=== PATIENT | male | born 1970 | race Caucasian/White ===

== ENCOUNTER 2016-08-08 07:27 | Emergency (ER) | payer OTHER ==
[~2016-08-08] VITALS: Ht 188 cm; Wt 93.2 kg
[2016-08-08 07:30] VITALS: BP 168/89; PULSE 49; RESP 14; O2SAT 98
--- NOTE | 2016-08-08 07:31 | ED.REPORT ---
HPI-Syncope Date of Service Aug 08, 2016 ED Provider: Abdi Stanton MD History of Present Illness: OCC Note initial nursing note used the word "blackout" implying syncope which is why the syncope template was chosen, but on history no actual syncope ever occurred patient describes vertigo, rather than near syncopal The patient is a 45 year old male who presents to the ED accompanied by his due to dizziness onset 4 hrs ago. He woke up this morning at 0400 and "did not feel right," reporting lightheadedness and disorientation. Pt went to the gym for his regular morning workout and afterwards felt like he was going to pass out, reporting an increase in dizziness and headache. Associated symptoms include photophobia, warmth, headache, loss of balance, and right ear pain. Pt describes that he did not feel sick, just abnormal. He denies loss of extremity function, numbness, or weakness. When he closes his eyes, he states that, "everything is spinning." If he holds his head still long enough, the dizziness stops. He takes naproxen and Nexium on a daily basis. Nursing Notes Stated Complaint: DIZZY,BLACKOUT,NAUSEA Chief Complaint: General Complaint Nursing Notes Reviewed: Yes ([employer], 51.com not reconciled) Allergies: Coded Allergies: No Known Allergies (Unverified , 08/08/16) Scheduled PRN Meclizine (Bonine) 25 Mg Tab.chew 25 MG PO TID PRN PRN For Dizziness Prochlorperazine Maleate (Prochlorperazine) 10 Mg Tablet 10 MG PO Q6H PRN PRN vertigo General Time Seen by Provider: 08:02 Chief Complaint Other (dizziness) Hx Obtained From: Patient Arrived By: Walk-in Onset Occurred: 5 - 8 hours ago Symptom Duration: Since onset Recent Healthcare: No recent doctor visit, No recent hospitalization Similar Sx Previous: No Past Medical History Past Medical History Notes: Patient is had prior evaluation for syncope with an echocardiogram March 2016: Interpretation Summary The left ventricle is normal in size, wall thickness, and systolic function without any focal wall motion abnormalities with the ejection fraction visually estimated to be 55-60%. Assessment of diastolic parameters indicates normal left ventricular diastolic function and normal filling pressures. The right ventricle is normal in size, thickness and function. Pulmonary artery pressures cannot be estimated because of the lack of a measurable TR jet velocity but the IVC suggests a low right atrial pressure of 3 mm Hg. The left atrium is moderately dilated while the right atrium is normal in size. There is no significant valvular heart disease. The patient was in sinus bradycardia with heart rates between 41-65 bpm during the exam. Past Medical History denies Past Surgical History denies Family History anuerysm Reports: Stroke Smoking History Never Smoker Social History Alcohol Use: 1-3 per week Other Social History: Good social support, , Local resident Ambulatory Status Independent Review of Systems Neurologic: Reports: Change LOC, Dizziness, Headache, Spinning sensation, Denies: Numbness, Slurred speech, Unable to speak, Weakness Complete sys rev & neg: except as marked. Physical Exam Physical Exam Notes: Initial Vital Signs Vital Signs (First) Date Time Temp Pulse Resp B/P Pulse Ox O2 Delivery O2 Flow Rate FiO2 08/08/16 07:30 36.8 49 14 168/89 98 Room Air Initial VS: Reviewed Abdomen / GI: Soft, Non-tender, No guarding, No rebound, No distention Lymphatic: No lymphadenopathy Upper Extremities: Vascular intact, Neuro intact, No swelling, No tenderness General/Constitutional: Awake, Alert, Cooperative Respiratory / Chest: Atraumatic, Breath sounds NL, Breath sounds = bilat, No respiratory distress Cardiovascular: Heart rate NL, Regular rhythm, Heart sounds NL, No gallop, No murmurs, No rubs Lower Extremity / Pelvis / MS: Atraumatic, Inspection NL Neurologic: Speech NL positive cerebellar ataxia mildly positive Romberg's test w/ normal finger to nose Head / Eyes: Normocephalic, No nystagmus ENT: Tympanic membs NL both ears completely clear no cervcial adenopathy no clinical symptoms of ENT infection that I can visualize Interpretation & Diagnostics Interpretation & Diagnostics: ANGIOGRAM MRI IMPRESSION: BRAIN MRI: 1. No evidence of infarct or other acute intracranial abnormality. BRAIN MR ANGIOGRAM: 1. No high-grade stenosis or occlusion of the central intracranial arteries. NECK MR ANGIOGRAM: 1. No high-grade stenosis or occlusion of the head and neck arteries. Carotid bulbs are widely patent. The estimate of stenosis included in the report of the imaging study was calculated using the NASCET method Dictated by: Matt Gabriel M.D. on 08/08/2016 at 12:00 Approved by: Matt Gabriel M.D. on 08/08/2016 at 12:13 Lab Results Interpretation Result Diagram: 08/08/16 0828 08/08/16 0828 Test 08/08/16 08:28 08/08/16 08:38 White Blood Count 9.4th/mm3 (3.8-10.1) Red Blood Count 5.30mil/mm3 (4.40-5.80) Hemoglobin 14.5g/dL (13.8-17.2) Hematocrit 43.2% (41.0-50.0) Mean Corpuscular Volume 81.5fL (81-100) Mean Corpuscular Hemoglobin 27.4pg (27.0-35.0) Mean Corpuscular Hemoglobin Concent 33.6% (32.0-37.0) Red Cell Distribution Width 13.3% (12.3-15.4) Platelet Count 345bil/L (150-400) Neutrophils (%) (Auto) 59.6% (40-74) Lymphocytes (%) (Auto) 24.6% (14-46) Monocytes (%) (Auto) 10.7% (4-12) Eosinophils (%) (Auto) 4.5% (0-5) Basophils (%) (Auto) 0.5% (0-3) Sodium Level 138mEq/L (134-144) Potassium Level 4.2mEq/L (3.5-5.2) Chloride Level 100mEq/L (97-108) Carbon Dioxide Level 23mmol/L (18-29) Blood Urea Nitrogen 15mg/dL (6-24) Creatinine 1.02mg/dL (0.76-1.27) Estimat Glomerular Filtration Rate 84mL/min (>59) Glucose Level 106mg/dL (60-99) Calcium Level 9.3mg/dL (8.5-10.1) Total Bilirubin 0.3mg/dL (0.0-1.2) Aspartate Amino Transf (AST/SGOT) 27U/L (0-50) Alanine Aminotransferase (ALT/SGPT) 29U/L (0-44) Alkaline Phosphatase 59U/L (25-150) Total Protein 7.4g/dL (6.4-8.4) Albumin 4.2g/dL (3.4-5.0) Hold Urine Received (Received) Lab Results Interpretation: Could not find an old EKG for comparison, but was able to locate an EKG from 12/09/15 which reports sinus bradycardia, 1st degree heartblock, and RBBB ECG Interpretation ECG Interpretation: 1st degree heart block UT intervals RBBB Time: 08:10 Interpreted by: ED physician Rhythm / Conduction: Bradycardia CT Head Interpretation IMPRESSION: No acute intracranial disease process. Dictated by: Kayla Hooks MD, PhD on 08/08/2016 at 8:38 Approved by: Kayla Hooks MD, PhD on 08/08/2016 at 8:41 Study: Head CT no contrast Interpretation / Wet Read by: Interpret - Radiologist Re-Eval/Medical Decision Med Decision/Clinical Course This is a resident previously healthy 45-year-old male presents with complaint of dizziness and describes what sounds like classic peripheral vertigo with sudden onset of symptoms this morning, turning his head worsens it, and his balance is off and he has difficulty walking when it occurs. There is no diaphoresis nausea vomiting. He does have a moderate headache at times with it with a sharp pain on the right side of his head-any indicates there is a family history of cerebral aneurysms, with his father dying of one. here in the Department he is normal vitals, clinically well appearing, he does not have nystagmus. His NIH stroke scale is 0. However the patient cannot walk heel-to-toe with positive ataxia, but does not fall to a single side. He has a mildly positive Romberg as well. No meningismus. His ear exam is normal. Patient presents with what sounds like peripheral vertigo, but has the risk factors of the familial cerebral aneurysm, an atypical headache-so workup was pursued. CT brain was negative, MRI with MRA was negative as well. Labwork was normal. Patient's improved with meclizine. At this point I am not finding evidence of dangerous etiology. No clinical findings of meningismus. He feels much improved. He is being discharged with a prescription for meclizine and when necessary prochlorperazine, a work note was provided as well. Patient's discharged in good/improved condition. Source of Hx: Old records Differential Diagnosis: Negative: Abdominal aortic aneurysm, Acute coronary syndrome, Alcohol abuse, Anemia, Arrhythmia, Autonomic dysfunction, Cerebrovascular accident, Chest pain, acute, Dysrhythmia, Electrolyte disorder, Head trauma, Hypoglycemia, Intracranial bleed, Palpitations, Pericarditis, Pneumothorax, Pulmonary embolus, Sepsis, Subarachnoid hemorrhage, Thoracic aortic dissect, CENTRIFUGAL SPINNER shunt malfunction, Vasovagal syncope Counseled Regarding: Diagnosis, Lab results, Need for follow-up, When/why to return to ED Discharge & Departure Impression: Primary Impression: Vertigo Disposition: Home Discharge Condition All VS Reviewed: Yes Condition: Stable Additional Instructions: 1. Your CT scan, lab work, and MRI were normal-there were no findings of a stroke, or aneurysm. 2. Your symptoms and exam suggest peripheral vertigo, this is usually caused by a temporary imbalance and oriented in the inner ear responsible for helping with your balance and coordination. 3. Although initially disabling, symptoms are expected to resolve with time. 4. Take things very easily-move slowly. No driving until symptoms have completely resolved. 5. Recommend taking meclizine 25 mg 3 times a day for the next couple of days and then as or if needed for the dizziness. 6. If needed for more severe symptoms, take prochlorperazine 10 mg up to every 6 hours. Note both of these medications cause some drowsiness, prochlorperazine tends to cough is more than meclizine. 7. Return if new or worsening or uncontrolled symptoms occur. Referrals: [facility] (PCP) Scribe Attestation Portion of this note were transcribed by Kathi Mccoy. I, Dr. Stanton, personally performed the history, physical exam, and medical decision-making: I reviewed and confirmed the accuracy for the information in the transcribed note. Signed by: gregorio Chase, 08/08/16 1000 copies to: [facility] Risk Factors NIH Stroke Scale Level of Consciousness: Alert and responsive (0) Ask Month & Age: Both questions right (0) Open/Close Eyes/Hand Rotary Drill Operator: Performs both tasks (0) Horizontal EO Movements: None (0) Visual Beard: No visual loss (0) Facial Palsy: Normal symmetry (0) Right Arm Motor Drift (10s): No drift 10 sec (0) Left Arm Motor Drift (10s): No drift 10 sec (0) Right Leg Motor Drift (5s): No drift 5 sec (0) Left Leg Motor Drift (5s): No drift 5 sec (0) Limb Ataxia FNF/Heel-Reyes: No ataxia (0) Sensation (Arms/Legs/Face): No sensory loss (0) Language Aphasia: No aphasia, normal (0) Dysarthria: No dysarthria, normal (0) Extinction/Inattention: No exctinct/inattent (0) NIHSS Score: 0 Time NIHSS Performed: 08:05 Date NIHSS Performed: Aug 08, 2016 Abdi Stanton MD Aug 08, 2016 07:31 Kathi Mccoy Aug 08, 2016 08:06
--- NOTE | 2016-08-08 08:42 | DRSVH ---
PROCEDURE: CT BRAIN WITHOUT CONTRAST ([id number]) INDICATIONS: SCHERER, ataxia TECHNIQUE: Noncontrast 4.5 mm thick angled axial sections acquired from the foramen magnum to the vertex, with c oronal reformats. COMPARISON: None. FINDINGS: Image quality: Excellent. CSF spaces: Basal cisterns are patent. No extra-axial fluid collections. Ventricles are normal in size and shape. Brain: No midline shift. No intracranial masses or hemorrhage. Fritz-white matter interface is norm al. Skull and face: Calvarium and visualized facial bones are intact, without suspicious lesions. Sinuses: Visualized sinuses and mastoids are clear. IMPRESSION: No acute intracranial disease process. Dictated by: Kayla Hooks MD, PhD on 08/08/2016 at 8:38 Approved by: Kayla Hooks MD, PhD on 08/08/2016 at 8:41
[2016-08-08 08:56] LABS: BASOPHILS % (AUTO) 0.5 % (0-3); EOSINOPHILS % (AUTO) 4.5 % (0-5); MONOCYTES % (AUTO) 10.7 % (4-12); Mean Corpuscular Hemoglobin 27.4 pg (27.0-35.0); Mean Corpuscular Volume 81.5 fL (81-100); NEUTROPHILS % (AUTO) 59.6 % (40-74); Platelet Count 345 bil/L (150-400)
[2016-08-08 10:26] VITALS: BP 114/69; PULSE 55; RESP 16; O2SAT 98
--- NOTE | 2016-08-08 12:15 | DRSVH ---
PROCEDURE: MRI STROKE PROTOCOL ([id number]) Pre- and post-contrast brain MRI, non-contrast brain MR angiogram, pre- and postcontrast neck MR willie ogram INDICATIONS: Headache and ataxia. TECHNIQUE: Brain: Noncontrast axial T1 spin echo, axial T2 fast spin echo, sagittal and axial FLAIR, coronal T2 fast spin echo, axial gradient echo, axial diffusion and ADC through the brain. After the administr ation of contrast, axial 3D VIBE of the cranial vasculature and brain. Brain MRA: Non-contrast 3-D time of flight MR angiogram, with multiple sknvhtu-gtglbwdvf-rpkedwtorg (MIP) reformats performed. Neck MRA: Axial and sagittal TruFISP through the neck. Coronal dynamic MR angiogram during administ ration of contrast in the arterial and venous phases, with 3-dimenstional frvujkn-yphtqfzit-scupqhjuk n (MIP) reformats constructed from subtraction images. COMPARISON: [facility], CT, CT BRAIN WO CON, 08/08/2016, 8:36. FINDINGS: Image quality: There is slight motion artifact. BRAIN: CSF spaces: Ventricles are normal in size and shape. Basal cisterns are patent. No extra-axial flu id collections. Brain: No intracranial hemorrhage, mass, or mass effect. Fritz-white matter interface is preserved. Diffusion weighted images demonstrate no acute infarct. Brainstem appears normal. Normal intravasc ular flow voids are present. No abnormal intracranial enhancement. Skull and face: Calvarial marrow signal is normal. Orbits appear normal. Sinuses: Sinuses and mastoids are clear. BRAIN MR ANGIOGRAM: Anterior circulation: Intracranial internal carotid arteries are normal in size and enhancement. Th e flow within the paired anterior cerebral arteries is normal and symmetric. The flow within the mid dle cerebral arteries is normal and symmetric. The anterior communicating artery is seen. No stenos es, occlusions, or aneurysms. Posterior circulation: The visualized portions of the vertebral arteries demonstrate normal caliber, and join to form a normal appearing basilar artery. The flow within the posterior cerebral arteries is normal and symmetric. No stenoses, occlusions, or aneurysms. NECK MR ANGIOGRAM: Carotids: Great vessels demonstrate a conventional anatomy as they arise from the aortic arch. The origins of the common carotid arteries appear patent. The calibers and courses of both common caroti d arteries are normal. The bifurcation regions appear normal bilaterally. The carotid bulbs are wid ezequiel patent. The internal carotid arteries demonstrate normal course and caliber. Posterior circulation: The origins of the vertebral arteries appear patent. More superior portions of both vertebral arteries demonstrate normal course and caliber, and join to form a normal appearing basilar artery. Miscellaneous: Subclavian arteries appear patent. Pre-contrast images through the neck demonstrate degenerative disease at C5-C6 and C6-C7 which are incompletely evaluated IMPRESSION: BRAIN MRI: 1. No evidence of infarct or other acute intracranial abnormality. BRAIN MR ANGIOGRAM: 1. No high-grade stenosis or occlusion of the central intracranial arteries. NECK MR ANGIOGRAM: 1. No high-grade stenosis or occlusion of the head and neck arteries. Carotid bulbs are widely rob nt. The estimate of stenosis included in the report of the imaging study was calculated using the NASCET method Dictated by: Matt Gabriel M.D. on 08/08/2016 at 12:00 Approved by: Matt Gabriel M.D. on 08/08/2016 at 12:13
[2016-08-08] MEDS ORDERED: MECL-114 PO (12:45)
[2016-08-08] MEDS ORDERED: PROC10TA PO (12:45)
[2016-08-08 12:58] VITALS: BP 138/77; PULSE 56; RESP 16; O2SAT 100
== END 2016-08-08 12:59 | disposition home or self-care (01) ==
LOC: SED 07:27
DX: R42 Dizziness and giddiness (principal)
CPT/HCPCS: 36415; 70450; 70549; 70553; 80053; 85025; 93005; 96374; 99285; A9585; J2060